=== PATIENT | female | born 1945 | race Caucasian/White ===

== ENCOUNTER 2020-02-18 12:14 | Outpatient (CLI) | payer OTHER, SELFPAY ==
--- NOTE | ~2020-02-18 | XR_ITS ---
. EXAMINATION: XR lg joint inject/asp w image DATE: 02/18/2020 13:21 INDICATION: Right hip pain. TECHNIQUE: A time-out was performed to verify the patient's name, date of , and procedure to b e performed. The procedure including the risks, benefits, and alternatives was discussed with the pat ient. Risks discussed included bleeding and infection. The patient understood the risks and agreed to proceed. The skin overlying the joint was prepped and draped in usual sterile fashion. Anesthetic was administered with 1% lidocaine subcutaneously. A 22 G needle was advanced under fluoroscopic edwin dance into the joint. Injection of 1 mL of Omnipaque 240 confirmed intra-articular position of the n eedle. Subsequently, injectate consisting of 3 mL 1% lidocaine and 1 mL 80 mg/mL Depo-Medrol was ins tilled. The needle was removed and the entry site was cleaned and dressed. There were no immediate complications. Fluoroscopy exposure time was 0.1 minutes. The total number of images was 1. FINDINGS: Real-time fluoroscopy demonstrates the needle in the right hip joint. Patient's pain prior to procedure:8/10. Patient's pain following the procedure: 0/10. IMPRESSION: 1. Right hip joint injection of local anesthetic and steroid with decrease in the patient's presentin g pain. Reviewed, dictated and finalized at location A. IMPRESSION: 1. Right hip joint injection of local anesthetic and steroid with decrease in t he patient's presenting pain.
== END 2020-02-18 12:15 | disposition home or self-care (01) ==
PROVIDERS: PCP Physician Assistant; Visit Provider Internal Medicine
DX: M25.551 Pain in right hip (principal)
CPT/HCPCS: 20610; 77002; J1040; Q9966

== ENCOUNTER 2020-03-07 10:54 | Outpatient (CLI) | payer OTHER, MEDICAID, SELFPAY ==
--- NOTE | ~2020-03-07 | CT_ITS ---
EXAMINATION: CT knee RT w con DATE: 03/07/2020 12:17 INDICATION: Right knee pain and swelling TECHNIQUE: High resolution computed tomography (CT) of the right knee was performed with 100 mL Omnip aque-350 intravenous contrast. Additional sagittal and coronal reconstructions were performed. Automa ceferino exposure control and iterative reconstruction technique were employed. The dose-length product wa s 439.39 mGy-cm. COMPARISON: None FINDINGS: Alignment is normal. No fracture. There is cartilage loss with mild joint space narrowing at the medi al compartment of the right knee although joint space narrowing can be underestimated on nonweightbea ring imaging. Additional cartilage loss along the patellar apical ridge and medial facet. No signific ant osteophytosis. Small enthesophytes at the patellar insertion of the distal quadriceps tendon. Phy siologic amount of fluid in the joint space. Small Kramer's cyst. No abscess or abnormally enhancing m asses. Small amount of calcified atherosclerotic plaque with mild, <50% stenosis along the popliteal artery and tibioperoneal trunk. No asymmetric muscular atrophy in the distal thigh or proximal calf. IMPRESSION: 1. 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 Reviewed, dictated and finalized at location A. IMPRESSION: 1. 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
[2020-03-07 12:08] LABS: Estimated Glomerular Filt Rate 44
== END 2020-03-07 10:55 | disposition home or self-care (01) ==
PROVIDERS: PCP Physician Assistant; Visit Provider Internal Medicine
DX: M17.11 Unilateral primary osteoarthritis, right knee (principal)
CPT/HCPCS: 36415; 73701; Q9967

== ENCOUNTER 2020-03-23 11:56 | Emergency (ER) | payer OTHER, SELFPAY ==
[2020-03-23] VITALS (29 sets, daily range): BP systolic 134–161; BP diastolic 70–93; PULSE 68–95; RESP 10–24; TEMP 36; O2SAT 90–98
--- NOTE | ~2020-03-23 | CT_ITS ---
EXAMINATION: CT brain wo con DATE: 03/23/2020 12:53 INDICATION: Altered mental status. Left-sided weakness. Lethargy. TECHNIQUE: Computed tomography (CT) of the head was performed without intravenous contrast. Sagittal and coronal reconstructions were performed. The mA was adjusted according to patient size. Iterative reconstruction technique was employed. The dose-length product was 605.33 mGy-cm. COMPARISON: head CT dated 01/20/04 FINDINGS: Bilateral deep brain stimulators extend through frontal victor m holes and with distal tips at the bilate ral subthalamic nuclei. No acute intracranial hemorrhage, acute infarction or abnormal extra axial fl uid collection. Ventricles are normal and symmetric. No mass/mass effect. Delayed opacification of th e visualized portions of the left maxillary sinus. The orbits and mastoid air cells are normal. IMPRESSION: 1. No acute intracranial process. 2. Bilateral deep brain stimulators with distal tips at the subthalamic nuclei. Reviewed, dictated and finalized at location A.
--- NOTE | ~2020-03-23 | XR_ITS ---
EXAMINATION: XR chest 1V EXAM DATE: 03/23/2020 12:56 INDICATION: Transient alteration of awareness. TECHNIQUE: Portable AP frontal chest x-ray was obtained. Comparison is made to prior examination from 04/18/2007. FINDINGS: Deep brain stimulator pack. Linear left basilar atelectasis. The lungs are otherwise clear. There are no pleural effusions. Cardiac silhouette is prominent but magnified on this AP technique . There is no pneumothorax suspected. Moderate to severe scoliosis. IMPRESSION: Linear left basilar atelectasis. Reviewed, dictated and finalized at location A.
[2020-03-23] MEDS: SODIUM CHLORIDE 0.9% IV 1,000 ML 999 ML IV CONT (12:40)
[2020-03-23 12:45] LABS: Basophils Absolute Auto 0.1 K/mm3 (0.0-0.1); Basophils Percent Auto 0.7 % (0.2-1.2); Eosinophils Percent Auto 0.6 % (0-4.4); Hemoglobin 12.3 g/dL (12.0-15.0); Immature Granulocyte Absolute 0.01 K/mm3 (0.00-0.031); Immature Granulocyte Percent A 0.1 % (0-0.5); Lymphocytes Absolute Auto 1.15 K/mm3 (0.9-3.2); Lymphocytes Percent Auto 16.7 % (18.3-44.2); Mean Corpuscular HGB Conc 32.4 g/dl (32-36); Mean Corpuscular Hemoglobin 30.3 pg (26-34); Mean Corpuscular Volume 93.6 fl (80-100); Mean Platelet Volume 10.8 fl (7.4-10.4); Monocytes Absolute Auto 0.6 K/mm3 (0.1-0.6); Neutrophils Absolute Auto 5.1 K/mm3 (1.3-6.7); Neutrophils Percent Auto 73.9 % (45.5-73.1); Platelet Count Result 276 k/mm3 (150-375); Red Blood Count 4.06 M/mm3 (4.2-5.4); Red Cell Distribution Width 14.5 % (11.5-14.5); White Blood Count 6.9 K/mm3 (4.5-10.0)
--- NOTE | 2020-03-23 12:49 | ED.GENADULT ---
HPI - General Adult General Chief complaint: Weakness Stated complaint: left sided weakness Source: RN notes reviewed History of Present Illness HPI narrative: Patient presents emergency department from home for weakness. Patient states symptoms began yesterday. States that she is so weak she has difficulty sitting up from laying down flat. Patient denies any unilateral weakness or deficits. States that she does have a history of Parkinson's disease and is followed by Dr. Moody at [facility]. She denies any fevers or chills chest pain shortness of breath abdominal pain nausea vomiting or any other symptoms Related Data Home Medications Medication Instructions Recorded Confirmed amlodipine 5 mg PO BID 03/23/20 carbidopa-levodopa 1 tablet PO BID 03/23/20 clonazepam 03/23/20 coenzyme [id number] E ml 03/23/20 duloxetine mg PO 03/23/20 gabapentin 03/23/20 hydroxychloroquine 200 mg PO BID 03/23/20 levothyroxine 03/23/20 losartan-hydrochlorothiazide tablet 03/23/20 cfzpwomedugd-Mq-ekkx-minerals tablet PO 03/23/20 pantoprazole IV 03/23/20 pramipexole 0.5 mg PO HS 03/23/20 pregabalin 50 mg PO BID 03/23/20 pregabalin [Lyrica] 03/23/20 rosuvastatin mg 03/23/20 Allergies Allergy/AdvReac Type Severity Reaction Status Date / Time latex Allergy Unknown RASH-GLOVES Verified 03/23/20 12:27 Penicillins Allergy Unknown RASH Verified 03/23/20 12:27 pneumococcal vaccine Allergy Unknown Swelling Verified 03/23/20 12:27 AT SITE, FEVER Review of Systems Review of Systems: Narrative: Gen.: Denies fevers or chills ENT: Denies congestion Respiratory: Denies shortness of breath or cough CV: Denies chest pain or palpitations GI: Denies abdominal pain nausea, emesis or diarrhea denies burning, urgency, frequency or hematuria Musculoskeletal: Denies back pain or muscle pain Neuro: Reports weakness Skin: Denies rash Except as documented, all other systems reviewed and negative [facility] Past Medical History Medical History (Updated 03/23/20 @ 15:17 by Loi Garrido DO) Parkinsons Social History Social History (Updated 03/23/20 @ 12:51 by Loi C. [place], DO) Smoking status: Never smoker Gender identity (if verbalized by the patient): Female Sexual Orientation (if Verbalized by the Patient): Straight or Heterosexual Exam Narrative: Exam Narrative: APPEARANCE: No acute distress, nontoxic, resting in bed EYES: EOMI HEENT: Normocephalic, atraumatic, OMM RESPIRATORY: No respiratory distress Clear to auscultation bilaterally with no rhonchi wheezing or rales. CARDIOVASCULAR: Regular rate and rhythm without murmurs rubs or gallops. ABDOMINAL: Soft, nontender, nondistended, no rebound or guarding MUSCULOSKELETAl: Moves all extremities. No clubbing, cyanosis or edema. NEURO: Awake and alert x 2. Following commands, speech normal, strength 4 out of 5 in bilateral upper and lower extremities SKIN:: Warm, dry. No rashes lesions or abrasions PSYCHIATRIC: Normal affect/mood, Course Course Emergency Course: Following IV fluids patient states she is feeling much better. The patient is able to get up and out of bed on her own and ambulate with no difficulty. Patient's daughter is also present. States the patient is at her baseline. The patient states that she would prefer to go home at this time. Discussed with patient results of workup and diagnosis. Discussed need for follow-up with primary care, proper use of medication, and reasons to return to the emergency department. Patient understands and agrees to current treatment plan Vital Signs Vital signs: Vital Signs Pulse Rate 78 03/23/20 12:12 Respiratory Rate 17 03/23/20 12:12 Pulse Oximetry 94 03/23/20 12:12 Temperature 96.8 F L 03/23/20 12:27 Pulse Rate 86 03/23/20 14:33 Respiratory Rate 16 03/23/20 14:33 Blood Pressure 150/76 H 03/23/20 14:33 Pulse Oximetry 96 03/23/20 14:33 Medical Decision
[2020-03-23 12:55] LABS: Prothrombin Time 12.4 Seconds (11.1-14.7)
[2020-03-23 12:56] LABS: Partial Thromboplastin Time 27.5 SECONDS (22.3-36.8)
[2020-03-23 12:59] LABS: Albumin Level 4.1 g/dL (3.5-5.1); Alkaline Phosphatase 111 U/L (38-126); Anion Gap 7 mmol/L (8-16); Aspartate Amino Transferase 28 U/L (14-36); Bilirubin,Total 0.3 mg/dL (0.2-1.3); Blood Urea Nitrogen 18 mg/dL (7-17); Calcium 9.8 mg/dL (8.4-10.2); Carbon Dioxide 30 mmol/L (22-30); Chloride 101 mmol/L (98-107); Estimated Glomerular Filt Rate 55; Glucose 91 mg/dL (65-105); Potassium 3.7 mmol/L (3.4-5.0); Sodium 138 mmol/L (137-145)
[2020-03-23 13:19] LABS: Alanine Aminotransferase < 6 U/L (4-35)
[2020-03-23 14:53] LABS: Add Urine Microscopic? YES; Appearance Urine Clear (Clear); Bacteria Urine Trace /hpf; Bilirubin Urine Negative (Negative); Blood Urine Negative (Negative); Color Urine Straw (Yellow); Glucose Urine UA Negative (Negative); Ketones Urine Trace mg/dL (Negative); Leukocyte Esterase Ur Negative LEU/UL (Negative); Mucus Urine Rare /lpf; Nitrate Urine Negative (Negative); Protein Urine Negative (Negative); RBC Urine 0-2 /hpf (0-2); Specific Grav Ur 1.012 (1.001-1.035); Urobilinogen Urine Negative mg/dL (<2.0); WBC Urine 0-3 /hpf
== END 2020-03-23 15:46 | disposition home or self-care (01) ==
PROVIDERS: Emergency Provider Emergency Medicine; PCP Physician Assistant
DX: R53.1 Weakness (principal); G20 Parkinson's disease; Z96.82 Presence of neurostimulator
CPT/HCPCS: 36415; 70450; 71045; 80053; 81001; 85025; 85610; 85730; 96360; 99284; J7030

== ENCOUNTER 2020-08-25 11:11 | Outpatient (CLI) | payer OTHER, SELFPAY ==
[2020-08-25 12:10] LABS: Basophils Absolute Auto 0.1 K/mm3 (0.0-0.1); Basophils Percent Auto 1.1 % (0.2-1.2); Eosinophils Absolute Auto 0.2 K/mm3 (0-0.3); Eosinophils Percent Auto 5.3 % (0-4.4); Hematocrit 38.3 % (37.0-47.0); Hemoglobin 12.3 g/dL (12.0-15.0); Immature Granulocyte Absolute 0.01 K/mm3 (0.00-0.031); Immature Granulocyte Percent A 0.2 % (0-0.5); Lymphocytes Absolute Auto 1.36 K/mm3 (0.9-3.2); Mean Corpuscular HGB Conc 32.1 g/dl (32-36); Mean Corpuscular Hemoglobin 29.6 pg (26-34); Mean Corpuscular Volume 92.1 fl (80-100); Mean Platelet Volume 11.2 fl (7.4-10.4); Monocytes Absolute Auto 0.5 K/mm3 (0.1-0.6); Neutrophils Absolute Auto 2.4 K/mm3 (1.3-6.7); Neutrophils Percent Auto 52.4 % (45.5-73.1); Platelet Count Result 273 k/mm3 (150-375); Red Blood Count 4.16 M/mm3 (4.2-5.4); White Blood Count 4.5 K/mm3 (4.5-10.0)
[2020-08-25 12:20] LABS: Hemoglobin A1C 5.4 % (<5.7)
[2020-08-25 12:26] LABS: Albumin Level 4.3 g/dL (3.5-5.1); Alkaline Phosphatase 115 U/L (38-126); Anion Gap 5 mmol/L (8-16); Aspartate Amino Transferase 32 U/L (14-36); Bilirubin,Total 0.5 mg/dL (0.2-1.3); Blood Urea Nitrogen 20 mg/dL (7-17); Calcium 9.8 mg/dL (8.4-10.2); Carbon Dioxide 36 mmol/L (22-30); Chloride 97 mmol/L (98-107); Estimated Glomerular Filt Rate 44; Glucose 122 mg/dL (65-105); Potassium 4.2 mmol/L (3.4-5.0); Sodium 138 mmol/L (137-145)
[2020-08-25 14:31] LABS: Alanine Aminotransferase 5 U/L (4-35)
== END 2020-08-25 11:12 | disposition home or self-care (01) ==
PROVIDERS: PCP Physician Assistant; Visit Provider Physician Assistant
DX: R53.83 Other fatigue (principal); E78.2 Mixed hyperlipidemia; R73.9 Hyperglycemia, unspecified; E03.9 Hypothyroidism, unspecified
CPT/HCPCS: 36415; 80053; 83036; 84443; 85025

== ENCOUNTER 2020-10-16 11:55 | Outpatient (CLI) | payer OTHER, MEDICAID, SELFPAY ==
[2020-10-16 12:32] LABS: Alanine Aminotransferase 8 U/L (4-35); Albumin Level 4.1 g/dL (3.5-5.1); Alkaline Phosphatase 116 U/L (38-126); Anion Gap 5 mmol/L (8-16); Aspartate Amino Transferase 28 U/L (14-36); Bilirubin,Total 0.4 mg/dL (0.2-1.3); Blood Urea Nitrogen 22 mg/dL (7-17); Carbon Dioxide 36 mmol/L (22-30); Chloride 96 mmol/L (98-107); Estimated Glomerular Filt Rate 40; Glucose 142 mg/dL (65-105); Potassium 3.6 mmol/L (3.4-5.0); Sodium 137 mmol/L (137-145)
== END 2020-10-16 11:56 | disposition home or self-care (01) ==
PROVIDERS: PCP Physician Assistant; Visit Provider Physician Assistant
DX: N18.31 Chronic kidney disease, stage 3a (principal)
CPT/HCPCS: 36415; 80053

== ENCOUNTER 2020-11-01 14:38 | Outpatient (CLI) | payer OTHER, MEDICAID, SELFPAY ==
--- NOTE | 2020-11-01 | ECHOL_ITS ---
Patient Info Name: Yolande Moreno Age: 75 years : 1945 Gender: Female Ht: 49 in Wt: 179 lbs BSA: 1.75 m2 HR: 80 bpm BP: 122 / 70 mmHg Heart Rhythm: Sinus Rhythm Technical Quality: Good Exam Date: 11/01/2020 3:41 PM Exam Location: [facility] Patient Status: Outpatient Admit Date: 11/01/2020 Staff Ordering Physician: GingerGiulia Batch Trucker: Denia Hayes RDCS Attending Provider: Giulia Ryan Exam Type: CA echo limited Study Info Indications - lower extremity edema Limited two-dimensional transthoracic echocardiogram is performed. Summary 1. Left ventricular systolic function is normal, estimated at >70%. 2. There is no increased left ventricular wall thickness. 3. The left ventricular diastolic function is normal. 4. There is no aortic valve stenosis. 5. There is mild mitral valve regurgitation. 6. There is moderate tricuspid valve regurgitation. 7. Mild pulmonary hypertension, estimated pulmonary arterial systolic pressure is 41 mmHg. Left Ventricle Left ventricular chamber dimension is normal. Left ventricular systolic function is normal, estimated at >70%. There is no increased left ventricular wall thickness. The left ventricular diastolic function is normal. Global longitudinal strain is normal at -21 %. Right Ventricle Right ventricular chamber dimension is normal. Right ventricular systolic function is normal. Left Atria Left atrial chamber dimension is normal. Right Atria Right atrial chamber dimension is normal. Aortic Valve The aortic valve is not well visualized. There is no aortic valve stenosis. There is no aortic valve regurgitation. Pulmonic Valve The pulmonic valve is not well visualized. There is mild pulmonic regurgitation. Mitral Valve The mitral valve has thickened leaflets. There is mild mitral valve regurgitation. The mitral valve annulus is mildly calcified. Tricuspid Valve The tricuspid valve leaflets are normal. There is moderate tricuspid valve regurgitation. Mild pulmonary hypertension, estimated pulmonary arterial systolic pressure is 41 mmHg. Pericardium/Pleural The pericardium appears normal. There is trivial pericardial effusion. Inferior Vena Cava Normal inferior vena cava with >50% collapse upon inspiration consistent with normal right atrial pressure, 5 mmHg. Aorta The aortic root size at the sinus of Valsalva is normal. There is mild aortic atherosclerosis. Mitral Valve Name Value Normal MV Doppler MV Decel Cross 546 cm/s2 MV PHT 49 ms MV Area (PHT) 4.5 cm2 4.0-5.0 MV Diastolic Function MV E Peak Velocity 92 cm/s MV A Peak Velocity 78 cm/s MV E/A 1.2 MV Decel Time 168 ms Tricuspid Valve Name Value Normal TV
== END 2020-11-01 14:39 | disposition home or self-care (01) ==
PROVIDERS: PCP Physician Assistant; Visit Provider Physician Assistant
DX: I34.0 Nonrheumatic mitral (valve) insufficiency (principal); I36.1 Nonrheumatic tricuspid (valve) insufficiency; I27.20 Pulmonary hypertension, unspecified; R60.0 Localized edema
CPT/HCPCS: 93308

== ENCOUNTER 2020-11-09 11:00 | Outpatient (RCR) | payer OTHER, MEDICAID, SELFPAY ==
--- NOTE | 2020-10-10 15:57 | LSVTLOUD ---
SPEECH THERAPY/LSVT LOUD EVALUATION: Thank you for referring Yolande Moreno to [facility] The patient is scheduled to be seen for therapy? 4x/week for 4 weeks. Please review, sign, date and return this plan of care KYAW. I agree with and certify that the following plan of care is medically necessary. Referring Physician Date Attending Provider: Giulia Villanueva, PA Referring Provider: Giulia Villanueva, PAMELA *LSVT LOUD Evaluation Outpatient Past Medical History Past Medical History Source of Past Medical History Patient Neurological History Hx Parkinson's Disease Yes: 2 YEARS Cardiovascular History Hx Hypercholesterolemia Yes Hx Hypertension Yes Other History Hx Other Surgeries Yes: dbs placement ; ra; hyperkalemia LSVT LOUD Evaluation Medical Information Diagnosis/Stage Parkinson disease Date of Initial Diagnosis 2 YEARS AGO What Were Your Initial Symptoms of essential tremors; Went to [facility] Parkinson's Disease? to neurology; had a DBS implanted in 2016 Medications For Parkinson's Disease carbidopa levodopa 1 1/2 capsule 3x/day How is Your Parkinson Medication Helpful I don't have many tremors ? Does Your Parkinson Medication Affect It makes my mouth dry Your Voice? Please Describe Do You Experience On/Off Symptoms? yes; my body jumps at times Please Describe Surgical Information Have You Had Neurosurgery? 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 Retired since 2009 When Did You First Start to Notice I've always had a soft voice; Communication Symptoms (i.e. Changes in I 'm not a loud person. But my Your Speech and/or Voice) That You neurologist is concerned Associate With Parkinson's Disease? about the way I talk. What are Your Current Symptoms? shortness of breath and soft voice What is Your Most Significant Problem not loud enough & shortness of Communicating Today? breath How Do You Typically Use Your Voice lives alone; speaks with During the Day? (Elicit From the Patient friends at her senior Information About Who the Patient independent living. She has a Communicates With, When the daughter who says she has to Communication is Done, and What May Be slow down and repeat but pt Said) reports that she does not notice that at all. How May Hours of Speaking Do You Do in a not very many Day? Right Now Does Your Voice Sound Like it yes Usually Does? Do People Ask You to Repeat? yes What Do You Do When You Want to Be As I just repeat myself Easy to Understand As Po
--- NOTE | 2020-11-09 16:27 | PCSTNOTE ---
SPEECH THERAPY DISCHARGE: Attending Provider: Giulia Villanueva, PA Patient:Yolande Moreno Date of :1945 Overall all goals have been met as outlined below. Thank you for referring this patient to [facility]. Please review, sign, date and return this discharge summary KYAW. I have been updated about the patient's current status and I agree with discharge from the above service at this time. Referring Physician Date *LSVT LOUD REEvaluation Task 1 LSVT LOUD Evaluation Protocol Maximum Duration of Sustained Vowel Phonation Task 1: Sound Pressure Level Meter to 50c Mouth Distance Task 1: Average of -ah- in Seconds 20.66 Task 1: Average of -ah- in Decibels of 80.21 Sound Pressure Level Query Text:(dB SPL) Task 1: Range (dB SPL) 76-85 Task 1: Comments Pt no longer reports that her voice is hoarse and exhibits a significant increase in breath support and loudness during the above task. Task 2 LSVT LOUD Evaluation Protocol Maximum Fundamental Frequency Range Task 2: Sound Pressure Level Meter to 50 Mouth Distance Task 2: Highest Pitch 425 Task 2: Lowest Pitch 123 Task 2: Comments Marked improvement from initial evaluation. Task 3 LSVT LOUD Evaluation Protocol Reading of a Passage Task 3: Sound Pressure Level Meter to 50cm Mouth Distance Task 3: Sound Pressure Level 70.5 Task 3: Comments initial evaluation dB during reading task: 62.5; marked improvement exhibited. Breathy vocal quality and slurred speech is no longer present. Task 4 LSVT LOUD Evaluation Protocol Conversion Monologue Task 4: Sound Pressure Level Meter to 50cm Mouth Distance Task 4: Sound Pressure Level 67.9 Speech Therapy Teaching Speech Therapy Teaching Teaching Topic Swallowing/Communication Topic Component Home Program As Pertains To Vocal Quality Recipient(s) of Teaching Patient Learning Preferences Demonstration,Discussion,One- on-One Instruction Readiness to Learn Excellent Teaching Method(s) Demonstration,One-On-One Instruction Response(s) to Teaching Returns Demonstration, Verbalizes Understanding ST Clinical Summary Clinical Summary ST Clinical Summary Ms. Moreno has completed voice therapy via the [facility] program ([place] ). She has completed
== END 2020-11-10 11:59 | disposition home or self-care (01) ==
LOC: ANHST 11:00
PROVIDERS: PCP Physician Assistant; Referring Provider Physician Assistant; Visit Provider Physician Assistant
DX: G20 Parkinson's disease (principal); R13.10 Dysphagia, unspecified
CPT/HCPCS: 92507; 92524

== ENCOUNTER 2020-11-13 12:52 | Outpatient (CLI) | payer OTHER, MEDICAID, SELFPAY ==
--- NOTE | ~2020-11-13 | XR_ITS ---
XR hip LT min 2V DATE: 11/13/2020 13:17 INDICATION: Left hip and groin pain. No injury. TECHNIQUE: AP, lateral and crosstable lateral views of left hip COMPARISON: None FINDINGS: No fracture or dislocation, avascular necrosis or bone destruction of the left hip. Left hi p joint space appears well preserved. The pubic symphysis and the sacroiliac joints are intact. Bilateral iliac arterial calcifications. IMPRESSION: No significant abnormality of the left hip Reviewed, dictated and finalized at location A.
== END 2020-11-13 12:53 | disposition home or self-care (01) ==
PROVIDERS: PCP Physician Assistant; Visit Provider Physician Assistant
DX: M25.552 Pain in left hip (principal)
CPT/HCPCS: 36415; 73502; 80053

== ENCOUNTER 2020-11-13 13:22 | Outpatient (CLI) | payer OTHER, MEDICAID, SELFPAY ==
[2020-11-13 14:15] LABS: Alanine Aminotransferase 7 U/L (4-35); Albumin Level 4.4 g/dL (3.5-5.1); Alkaline Phosphatase 119 U/L (38-126); Anion Gap 4 mmol/L (8-16); Aspartate Amino Transferase 34 U/L (14-36); Bilirubin,Total 0.4 mg/dL (0.2-1.3); Blood Urea Nitrogen 22 mg/dL (7-17); Calcium 9.4 mg/dL (8.4-10.2); Carbon Dioxide 36 mmol/L (22-30); Chloride 93 mmol/L (98-107); Estimated Glomerular Filt Rate 44; Glucose 89 mg/dL (65-105); Potassium 4.1 mmol/L (3.4-5.0); Sodium 133 mmol/L (137-145)
== END 2020-11-13 13:23 | disposition home or self-care (01) ==
PROVIDERS: PCP Physician Assistant; Visit Provider Physician Assistant
DX: M25.552 Pain in left hip (principal)
CPT/HCPCS: 36415; 80053

== ENCOUNTER 2020-11-23 15:22 | Outpatient (CLI) | payer OTHER, MEDICAID, SELFPAY ==
--- NOTE | ~2020-11-23 | CT_ITS ---
EXAMINATION: CT abdomen pelvis wo con DATE: 11/23/2020 15:47 INDICATION: Left flank pain TECHNIQUE: Computed tomography (CT) of the abdomen and pelvis was performed without intravenous contr ast. Automated exposure control and iterative reconstruction technique were employed. The dose-length product was 212.15 mGy-cm. COMPARISON: None FINDINGS: Mild bibasilar atelectasis with mild bronchiectasis at the bilateral lung bases. Heart size is normal . No pericardial or pleural effusion. Atherosclerotic coronary artery calcification and aortic valve calcification. Liver, gallbladder, spleen, pancreas and bilateral adrenal glands are normal. Kidneys and ureters are normal with no urolithiasis, hydroureteronephrosis or perinephric/ureteral stranding. Bowels are unremarkable with no wall thickening or obstruction. Bladder is normal. The uterus is not identified and has likely been surgically resected. There is calcified atherosclerosis of the aorta and many of the other arteries. No free intraperitoneal gas or fluid. No pathologically enlarged abdo daniel or pelvic lymphadenopathy. Thoracolumbar dextroscoliosis with severe spondylosis. IMPRESSION: 1. No urolithiasis or acute intra-abdominal/pelvic process. Reviewed, dictated and finalized at location A.
== END 2020-11-23 15:23 | disposition home or self-care (01) ==
PROVIDERS: PCP Physician Assistant; Visit Provider Physician Assistant
DX: R10.9 Unspecified abdominal pain (principal)
CPT/HCPCS: 74176

== ENCOUNTER → 2021-01-10 12:56 | Outpatient (CLI) | payer OTHER, MEDICAID, SELFPAY ==
--- NOTE | ~2021-01-10 | CT_ITS ---
EXAMINATION: CT lumbar spine wo [facility] EXAM DATE: 01/10/2021 13:15 INDICATION: Lumbar radiculopathy. Left hip and leg pain. Low back pain. TECHNIQUE: Spiral CT of the lumbar spine was performed without contrast. Axial, coronal and sagittal images lumbar spine were reviewed. The dose-length product (DLP) for this examination was 584.52 mG y-cm. The exposure was tailored according to patient size (auto mA exposure control), and iterative reconstruction (ASIR) was used as additional dose reduction technique. Comparison is made to prior e xamination from 03/06/2017. FINDINGS: There is moderate thoracolumbar dextroscoliosis. Pacemaker/AICD device. There are no acute fractures identified. Paraspinal soft tissue is unremarkable. There is 2-3 mm retrolisthesis L4 on L5 . There is 3 mm anterolisthesis L5 on S1. The vertebral bodies are otherwise aligned. Moderate to sev ere loss of the disc height from T12 through L5, moderate at L5-S1. Level by level evaluation: T12-L1: There is a mild diffuse disc bulge. Facet arthropathy: Mild bilateral. Neural foraminal stenosis: No stenosis. Central canal stenosis: No stenosis. L1-L2: There is a mild diffuse disc bulge. Facet arthropathy: Mild. Neural foraminal stenosis: No stenosis. Central canal stenosis: No stenosis. L2-L3: There is a moderate diffuse disc bulge. Facet arthropathy: Mild to moderate. Neural foraminal stenosis: Mild to moderate left. Central canal stenosis: Mild to moderate. L3-L4: There is a moderate diffuse disc bulge. Facet arthropathy: Moderate. Neural foraminal stenosis: Moderate left, mild to moderate right. Central canal stenosis: Moderate. L4-L5: There is a moderate diffuse disc bulge. Facet arthropathy: Severe. Neural foraminal stenosis: Moderate right, mild to moderate left. Central canal stenosis: Moderate to severe. L5-S1: There is a mild to moderate diffuse disc bulge. Facet arthropathy: Severe right, moderate left. Neural foraminal stenosis: Moderate to severe right, mild left. Central canal stenosis: Moderate. There has been progression in spondylosis compared to previous examination, particularly with degree of central canal stenosis at L4-5. IMPRESSION: 1. Progression of spondylosis, now moderate to severe L4-5 Central canal stenosis. 2. Overall moderate to severe lumbar spondylosis. 3. Moderate thoracolumbar dextroscoliosis. 4. No acute findings. Reviewed, dictated and finalized at location B. IMPRESSION: 1. Progression of spondylosis, now moderate to severe L4-5 Central canal steno sis. 2. Overall moderate to severe lumbar spondylosis. 3. Moderate thoracolumbar dextroscoliosis. 4. No acute findings.
== END ==
PROVIDERS: Visit Provider Nurse Practitioner Family
DX: M47.26 Other spondylosis with radiculopathy, lumbar region (principal); M41.9 Scoliosis, unspecified
CPT/HCPCS: 72131